=== PATIENT | female | born 1940 | race Caucasian/White ===

== ENCOUNTER → 2016-06-30 | Outpatient (CLI) | payer BC ==
[~2016-06-30] MED LIST: ACET1TAB84 PO; CALC-323 PO; ESTR0.5T3 PO; GLC/500 PO; MAGNESIUM PO; MULT-506 PO; OMEG12006 PO; PRLSR20 PO; SUDAFED PO
== END | disposition home or self-care (01) ==
LOC: C.RDSM 15:45
PROVIDERS: ATTEND Physical Medicine & Rehabilitation Sports Medicine
DX: Z96.642 Presence of left artificial hip joint (principal)

== ENCOUNTER → 2016-08-14 | Outpatient (CLI) | payer BC ==
--- NOTE | 2016-08-14 11:34 | DIAGNOSTIC IMAGING REPORT ---
RIGHT SHOULDER 3 VIEWS HISTORY: RIGHT SHOULDER PAIN Right COMPARISON: None. FINDINGS: There is no fracture or dislocation. Soft tissues are unremarkable. The right clavicle is intact. Mild cartilage space narrowing at the glenohumeral joint and small marginal osteophytes consistent with degenerative change. The bones are osteopenic. 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 No fracture or dislocation within the right shoulder. Electronically signed by: Wayne Rogers M.D. 08/14/2016 11:32 AM Dictated Date/Time: 08/14/2016 11:25 AM
== END | disposition home or self-care (01) ==
LOC: C.RDSM 14:46
PROVIDERS: ATTEND Physical Medicine & Rehabilitation Sports Medicine
DX: M25.511 Pain in right shoulder (principal)

== ENCOUNTER → 2017-02-24 | Outpatient (CLI) | payer BC ==
--- NOTE | 2017-02-25 08:10 | MAMMOGRAPHY REPORT ---
BILATERAL DIGITAL SCREENING MAMMOGRAM WITH CAD: 02/24/2017 CLINICAL HISTORY: Routine screening. Patient has no complaints. TECHNIQUE: Bilateral CC, MLO and repeat left cc views were obtained. Current study was also evaluate d with a Computer Aided Detection (CAD) system. COMPARISON: Comparison is made to exams dated: 02/22/2016 mammogram, 01/19/2015 mammogram, 01/04/2014 m ammogram, 08/26/2011 mammogram, 11/26/2012 mammogram - [facility], and 02/13/2009. BREAST COMPOSITION: There are scattered areas of fibroglandular density in both breasts. FINDINGS: There is stable nodularity and asymmetries bilaterally. Scattered stable punctate and roun d microcalcifications. No new suspicious mass, architectural distortion or cluster of microcalcifica tions is seen. IMPRESSION: ACR BI-RADS CATEGORY 1: NEGATIVE There is no mammographic evidence of malignancy. A 1 year screening mammogram is recommended. The pa tient will receive written notification of the results. Approximately 10% of breast cancers are not detected with mammography. A negative mammographic report should not delay biopsy if a clinically suggestive mass is present. Mago Rossi M.D. ay/:02/24/2017 15:03:53 Music Department Chair: Aditi HWANGR, M, [facility] letter sent: Normal 1/2 BI-RADS Code: ACR BI-RADS Category 1: Negative
== END | disposition home or self-care (01) ==
LOC: C.MAMM 12:54
PROVIDERS: ATTEND Obstetrics & Gynecology
DX: Z12.31 Encounter for screening mammogram for malignant neoplasm of breast (principal)

== ENCOUNTER → 2017-03-06 | Outpatient (CLI) | payer BC | END | disposition home or self-care (01) | LOC: C.PAPS 17:48 | PROVIDERS: ATTEND Obstetrics & Gynecology | DX: N81.10 Cystocele, unspecified (principal) ==

== ENCOUNTER → 2017-07-16 | Outpatient (CLI) | payer BC ==
--- NOTE | 2017-07-16 13:38 | DIAGNOSTIC IMAGING REPORT ---
SOFT TISS HEAD/NECK-THYROID CLINICAL HISTORY: 77 years-old Female with LOCALIZED SWELLING,MASS AND LUMP,NECK. Acute pain and swelling of the left neck COMPARISON: None available TECHNIQUE: Multiple real time sonographic images of the neck were obtained accessing lara scale appearance and color doppler flow. FINDINGS: Occlusive expansile echogenic thrombus of the left internal jugular vein is noted. Technical Designer reports that images of the subclavian vein on the left or also obtained which showed patency without thrombus. The right internal jugular vein was imaged for comparison and appears patent and within normal limits. IMPRESSION: Occlusive thrombus of the left internal jugular vein. The ordering clinician Apurva Figueroa was notified of these findings at time of dictation. The above report was generated using voice recognition software. It may contain grammatical, syntax or spelling errors. Electronically signed by: Titi Will M.D. 07/16/2017 1:37 PM Dictated Date/Time: 07/16/2017 1:18 PM
== END | disposition home or self-care (01) ==
LOC: C.ULTRBC 12:33
PROVIDERS: ATTEND Physician Assistant
DX: R22.1 Localized swelling, mass and lump, neck (principal); S16.1XXA Strain of muscle, fascia and tendon at neck level, initial encounter; X58.XXXA Exposure to other specified factors, initial encounter; I82.C12 Acute embolism and thrombosis of left internal jugular vein

== ENCOUNTER → 2017-07-23 | Outpatient (CLI) | payer BC ==
[~2017-07-23] MED LIST changes: +OPTIRAY 320 IV PRN
[2017-07-23 16:41] LABS: CREATININE 0.72 mg/dl (0.60-1.20)
--- NOTE | 2017-07-23 17:18 | DIAGNOSTIC IMAGING REPORT ---
SOFT TISSUE NECK COMBO CLINICAL HISTORY: LEFT INTERNAL JUGULAR CLOT, R/O MASS thrombosis TECHNIQUE: Transaxial acquisition with multi axial reformatted images COMPARISON STUDY: Neck ultrasound 07/16/2017 FINDINGS: Examination is acquired transaxially. An postcontrast enhancement. Three-dimensional reconstructive images were utilized. There is thrombosis of the left internal jugular vein extending approximately from the level of C3 through the left supraclavicular region. This is approximately 6to 8 cm in length. Vessel is moderately distended. There is an abrupt tapering of the vessel with a trace amount of peripheral flow at and slightly proximal to its juncture with the left subclavian. There is a soft tissue mass posterior to the region of narrowing measuring approximately 4 x 3 cm at maximum dimension. It is in contact with the left subclavian artery, although the vessel does not appear to be compromised. The left subclavian vein appears to be partially thrombosed and/or near completely thrombosed at its medial aspect. There is apical fibrotic change. There is no definite bony destructive change. There is no significant cervical adenopathy. Sternocleidomastoid musculature is symmetric. All major salivary glands are symmetric with no significant space-occupying lesions. Thyroid is slightly inhomogeneous but is appears to be generally symmetric. There is no evidence for airway compromise. There is no significant midline displacement. IMPRESSION: 1. Thrombosis of the mid to inferior aspect left internal jugular vein with segmental thrombosis of the medial left subclavian vein. 2. These findings are associated with a left anterolateral apical soft tissue mass of the left anterior chest wall measuring 4 x 3 cm immediately anterior and inferior to the left first rib medially. 3. This mass also encompasses in part the left medial subclavian artery and possibly origin of the left common carotid artery. Those vessels are intact. 4. No evidence for additional adenopathy in the cervical chains. 5. Neoplastic process must be considered. The above report was generated using voice recognition software. It may contain grammatical, syntax or spelling errors. Electronically signed by: Zander Ramirez M.D. 07/23/2017 5:17 PM Dictated Date/Time: 07/23/2017 5:00 PM
== END | disposition home or self-care (01) ==
LOC: C.CTS 15:52
PROVIDERS: ATTEND Family Medicine
DX: I82.C12 Acute embolism and thrombosis of left internal jugular vein (principal); M79.9 Soft tissue disorder, unspecified; R73.02 Impaired glucose tolerance (oral)

== ENCOUNTER → 2017-08-10 | Outpatient (CLI) | payer BC ==
[~2017-08-10] MED LIST changes: -OPTIRAY 320 IV PRN
== END | disposition home or self-care (01) ==
LOC: C.RDSM 17:00
PROVIDERS: ATTEND Physical Medicine & Rehabilitation Sports Medicine
DX: M16.0 Bilateral primary osteoarthritis of hip (principal); Z96.642 Presence of left artificial hip joint

== ENCOUNTER → 2017-08-11 | Outpatient (CLI) | payer BC ==
--- NOTE | 2017-08-11 09:07 | DIAGNOSTIC IMAGING REPORT ---
CT SCAN OF THE CHEST WITHOUT IV CONTRAST CLINICAL HISTORY: Mediastinal mass. COMPARISON STUDY: Chest x-ray dated 06/15/2014. CT scan of the neck dated 07/23/2017. TECHNIQUE: CT scan of the thorax was performed from the thoracic inlet to the upper abdomen. Images are reviewed in the axial, sagittal, and coronal planes. IV contrast was not administered for this examination as per the referring clinician. Note that the examination is suboptimal without IV contrast. A dose lowering technique was utilized adhering to the principles of ALARA. CT DOSE: 237.68 mGycm FINDINGS: Thyroid: Imaged portions of the thyroid gland are normal in size and attenuation. Thoracic aorta: The thoracic aorta is normal in caliber and demonstrates standard 3-vessel arch anatomy. Heart: The heart is normal in size and without pericardial effusion. Lungs and pleural spaces: A fat-containing Bochdalek hernia is seen at the left lung base. Scarring versus atelectasis is identified at the lung bases. No airspace consolidation or pleural effusion is seen there are scattered calcified granulomas. Apical scarring is observed. The trachea and central airways are clear. Mediastinum: There is no mediastinal mass lesion or lymphadenopathy. Christine: Not well assessed without IV contrast. Axillae: There is no axillary lymphadenopathy. Upper abdomen: There is a small hiatal hernia. Partially visualized upper abdominal viscera is otherwise within normal limits. Skeletal structures: The skeletal structures are osteopenic. There is a mild to moderate compression deformity of T11. A mild compression deformities seen involving L2. No lytic or blastic bony lesions are seen. IMPRESSION: 1. No mediastinal mass lesion or lymphadenopathy is identified. 2. The left apical abnormality seen on the neck CT dated 07/23/2017 is not apparent. 3. The lungs are clear. 4. Hiatal hernia. 5. Additional findings as above. Electronically signed by: Christophe Ospina M.D. 08/11/2017 9:06 AM Dictated Date/Time: 08/11/2017 8:53 AM
== END | disposition home or self-care (01) ==
LOC: C.CTS 08:23
PROVIDERS: ATTEND Surgery
DX: J98.59 Other diseases of mediastinum, not elsewhere classified (principal); K44.9 Diaphragmatic hernia without obstruction or gangrene

== ENCOUNTER → 2017-10-01 | Day surgery (SDC) | payer BC ==
[2017-09-29 13:40] VITALS: Ht 160 cm; Wt 62.7 kg
[~2017-10-01] VITALS: Ht 160 cm; Wt 62.7 kg
[~2017-10-01] MED LIST changes: -ACET1TAB84 PO; -CALC-323 PO; +CALC1TAB9 PO; -ESTR0.5T3 PO; -GLC/500 PO; +GLUCOSAMINE PO; +LIDOCAINE HCL 1% MPF 5 ML VIAL ONE; +MAGN250T3 PO; -MAGNESIUM PO; -MULT-506 PO; +MULT1CAP7 PO; -OMEG12006 PO; +OMEGCAP2 PO; +RIVA1TAB4 PO; +SODIUM CHLORIDE 0.9% INJ 10 ML VIAL ONE; -SUDAFED PO; +VITAMIN E PO
--- NOTE | 2017-10-01 14:55 | History & Physical Bridge - SC ---
H&P Re-Evaluation Bridge Note: I have examined the patient, reviewed the History & Physical and in the interval since the performance of the History & Physical I have noted the following changes of clinical significance: No changes noted
--- NOTE | 2017-10-01 15:13 | [facility] Post Operative Brief Note ---
Immediate Operative Summary Operative Date Oct 01, 2017. Pre-Operative Diagnosis Right L5 radiculopathy secondary to L4-L5 multifactorial stenosis secondary to L4-L5 spondylolisthesis Post-Operative Diagnosis Same Procedure(s) Performed Caudal Epidural Steroid Injection Surgeon Dr Kobe Sierra Assistant Maintenance Manager Surgeon(s) None Estimated Blood Loss 0 Findings Consistent with Post-Op Diagnosis Specimens NA Drains None Anesthesia Type Local Complication(s) none Disposition Disposition:
--- NOTE | 2017-10-01 15:14 | Discharge Instructions ---
Discharge Instructions Date of Service Oct 01, 2017. Visit Reason for Visit: Lumbar Radiculopathy Discharge Discharge Diagnosis / Problem: Right leg pain Discharge Goals Goal(s): Decrease discomfort, Improve function Activity Recommendations Activity Limitations: resume your previous activity Anesthesia . Post Anesthesia Instructions: If you have had General Anesthesia or IV Sedation: * Do not drive today. * Resume driving when surgeon permits. * Do not make important decisions or sign legal documents today. * Call surgeon for: 1. Temperature elevations greater than 101 degrees F. 2. Uncontrollable pain. 3. Excessive bleeding. 4. Persistent nausea and vomiting. 5. Medication intolerance (nausea, vomiting or rash). * For nausea and vomiting use only clear liquids such as: tea, soda, bouillon until nausea subsides, then gradually increase diet as tolerated. * If you have any concerns or questions, call your surgeon's office. If physician is unavailable and it is an emergency, call 911 or go to the nearest emergency room. . Diet Recommendations Recommended Home Diet: resume previous diet Procedures Procedures Performed: Caudal Epidural Steroid Injection Pending Studies Studies pending at discharge: no Medical Emergencies . Who to Call and When: Medical Emergencies: If at any time you feel your situation is an emergency, please call 911 immediately. . Non-Emergent Contact Non-Emergency issues call your: Specialist . . "Provider Documentation" section prepared by Kobe Sierra. .
[2017-10-01 15:15] VITALS: TEMP 36.8
[2017-10-01 15:35] VITALS: BP 134/88; PULSE 93; O2SAT 98
--- NOTE | 2017-10-01 16:36 | OPERATIVE REPORT ---
DATE OF OPERATION: 10/01/2017 PREOPERATIVE DIAGNOSIS: Right L5 radiculopathy secondary to L4-L5 multifactorial stenosis secondary to an L4-L5 spondylolisthesis. POSTOPERATIVE DIAGNOSIS: Right L5 radiculopathy secondary to L4-L5 multifactorial stenosis secondary to an L4-L5 spondylolisthesis. PROCEDURE: Caudal epidural steroid injection under fluoroscopic guidance. INDICATIONS: The patient is a 77-year-old white female who has had low back pain for a number of years. She is describing radicular pains. She is also currently on Xarelto and the symptoms are consistent with an L5 radiculopathy. Decision is made to enter via caudal approach, so we do not hold her Xarelto and place her at risk of a cardiac issue. PHYSICAL EXAMINATION: A pleasant female, seated comfortably. She has tenderness and increased pain with extension, extension rotation, sciatic notch sensitivity on the right side, decreased subjective sensation in the right L5 dermatomal distribution and calf area. CONSENT: Verbal and written consent was obtained from the patient. Risks and benefits were reviewed. Risks include but are not limited to epidural abscess and allergic reaction. The patient wishes to proceed. PROCEDURE IN DETAIL: The patient was taken back to the special procedures room of [facility]. She was maintained in a prone position. The backside was cleansed with Betadine x3 and a dry sterile dressing was applied. Fluoroscope was used to identify the sacral hiatus and the overlying skin was anesthetized with 4 mL of lidocaine 1% with a 25 gauge 1.5-inch needle. A 25 gauge 3.5-inch spinal needle was then directed under fluoroscopic guidance into the canal. She then underwent an injection after negative aspiration of 40 mg of Depo-Medrol and 4 mL of preservative-free sodium chloride. The injection was well-tolerated. DISPOSITION: 1. The patient is taken out into the discharge recovery area where she will be discharged home once discharge criteria have been met. 2. Follow up in the [facility] office in 4 weeks' time. I attest to the content of the Intraoperative Record and any orders documented therein. Any exception s are noted below.
== END | disposition home or self-care (01) ==
LOC: X.SURG 13:46
PROVIDERS: ATTEND Physical Medicine & Rehabilitation
DX: M48.061 Spinal stenosis, lumbar region without neurogenic claudication (principal); M54.16 Radiculopathy, lumbar region; M43.16 Spondylolisthesis, lumbar region; Z88.2 Allergy status to sulfonamides; Z79.01 Long term (current) use of anticoagulants; Z82.49 Family history of ischemic heart disease and other diseases of the circulatory system

== ENCOUNTER → 2017-10-13 | Outpatient (CLI) | payer BC ==
[~2017-10-13] MED LIST changes: -LIDOCAINE HCL 1% MPF 5 ML VIAL ONE; -SODIUM CHLORIDE 0.9% INJ 10 ML VIAL ONE
--- NOTE | 2017-10-13 14:33 | DIAGNOSTIC IMAGING REPORT ---
SOFT TISS HEAD/NECK-THYROID CLINICAL HISTORY: 77 years-old Female with ACUTE INTERNAL JUGULAR VEIN THROMBOSIS. Follow-up study to assess jugular thrombus COMPARISON: Ultrasound study 07/16/2017 TECHNIQUE: Multiple real time sonographic images of the left neck were obtained accessing lara scale appearance and color doppler flow. FINDINGS: Partially occlusive thrombus of the left internal jugular vein is noted with only minimal flow present. The right internal jugular vein is patent. Left subclavian vein also appears patent. IMPRESSION: Partially occlusive chronic appearing thrombus of the left internal jugular vein. The above report was generated using voice recognition software. It may contain grammatical, syntax or spelling errors. Electronically signed by: Titi Will M.D. 10/13/2017 2:32 PM Dictated Date/Time: 10/13/2017 2:29 PM
== END | disposition home or self-care (01) ==
LOC: C.ULTRBC 13:49
PROVIDERS: ATTEND Family Medicine
DX: I82.C19 Acute embolism and thrombosis of unspecified internal jugular vein (principal)

== ENCOUNTER → 2018-01-15 | Outpatient (CLI) | payer BC ==
--- NOTE | 2018-01-15 14:21 | DIAGNOSTIC IMAGING REPORT ---
LEG LENGTH STUDY; SINGLE VIEW PELVIS CLINICAL HISTORY: Right hip pain. FINDINGS: An AP view of the pelvis with 4 additional views of the lower extremities from a leg length study are presented. The skeletal structures are osteopenic. There is no radiographic evidence of fracture involving the bony pelvis or the lower extremities. A left hip arthroplasty is in place. Mild to moderate arthritic change and joint space narrowing is seen in the right hip. Mild sclerotic change is seen in the sacroiliac joints and lumbosacral spondylosis is observed. Arthritic change is also seen in the knees. The right lower extremity measures 88.7 cm and the left lower extremity measures 88.7 cm as measured from the femoral head to the tibial plafond. The overlying soft tissues are normal as imaged. IMPRESSION: 1. No significant leg length discrepancy is identified. 2. A left hip arthroplasty is in place. 3. No acute bony abnormality seen in the pelvis or lower extremities. 4. Osteopenia and degenerative change as above. Electronically signed by: Christophe Ospina M.D. 01/15/2018 2:20 PM Dictated Date/Time: 01/15/2018 2:13 PM
== END | disposition home or self-care (01) ==
LOC: C.RDSM 13:26
PROVIDERS: ATTEND Physician Assistant
DX: M25.551 Pain in right hip (principal); M79.604 Pain in right leg